=== PATIENT | female | born 1945 | race Caucasian/White ===

== ENCOUNTER 2018-05-04 18:11 | Observation (INO) | payer MEDICARE, BC ==
[~2018-05-04] VITALS: Ht 166.4 cm; Wt 90.9 kg
[~2018-05-04 18:11] MED LIST: ALBUTEROL SUL0.083 % IN; AMLODIPINE5 MG PO; ASTELIN NASA137 MCG; AZITHROMYCIN250 MG PO; BABY ASPIRIN81 MG PO; BAYER ASPIRIN E81 MG; CITRACAL + D OR; CITRACAL + D PO; CLARITIN10 M1 PO; CRESTOR10 MG PO; CVS ALLERGY REL10 MG PO; FLONASE NASAL50 MCG; FUROSEMIDE20 MG PO; GLIPIZIDE5 M1 PO; GLUCOTROL EXTE2.5 M1 PO; GLYBURIDE/METFO1 TA1 OR; HYZAAR1 TAB PO; KEFLEX500 M1 PO; LEVEMIR FLEXPEN SC; METFORMIN1000 MG PO; METFORMIN850 MG PO; MICRO-K10 ME1 OR; MULTIVITAM10 OR; NEXIUM40 M1 PO; ONE DAILY FOR WOME1 PO; PAROXETINE10 MG PO; PENTOXIFYLLI400 MG PO; PRILOSEC20 MG PO; SINGULAIR PO; TRAMADOL HCL50 MG PO; VITAMIN C500 M6 PO; WELCHOL625 MG PO
--- NOTE | 2018-05-04 18:27 | NUR ---
PT STATES THAT SHE HAD A SYNCOPAL EPISODE WHILE AT THE [facility]. STATES THAT THE PT WAS UNRESPONSIVE FOR 15 TO 20 SECONDS. PT STATES THAT SHE HAS A HX OF
--- NOTE | 2018-05-04 18:29 | NUR ---
PT STATES THAT HAD A SYNCOPAL EPISODE WHILE AT THE [facility], STATES THE PT WAS UNRESPONSIVE FOR 15 TO 20 SECONDS. PT FELL AND HIT THE BACK OF HER HEAD. PT STATES BACK PAIN AT A 3/10, HEAD PAIN AT A 8/10. PT STATES THAT SHE HAS A HX OF SYNCOPAL EPISODES. PT IS AOX4 AT THIS TIME. PT DENIES ANY CP, SOB, N/V OR WEAKNESS. PT IS C-BRISEYDA AND BACKBAORDED BY EMS.
--- NOTE | 2018-05-04 18:36 | NUR ---
PT STATES SHE IS NAUSEAUS VERBAL ORDER RECEIVED TO GIVEN 4MG ONDASETRON IVP PER DR SCHERER.
[2018-05-04] MEDS ORDERED: CLARITIN-D1 TA2 PO (18:44)
[2018-05-04] MEDS ORDERED: BIOTIN 5000 PO (18:44)
[2018-05-04] MEDS ORDERED: PROAIR HFA108 MCG/AC (18:45)
[2018-05-04] MEDS ORDERED: FLUTICASONE (18:46)
[2018-05-04] MEDS ORDERED: IRON 100 PLUS PO (18:46)
[2018-05-04] MEDS ORDERED: SYMBICORT 80-4.5MCG (18:47)
[2018-05-04] MEDS ORDERED: FUSION PLUS (18:48)
[2018-05-04] MEDS ORDERED: CALTRAT1 PO (18:49)
[2018-05-04 19:06] LABS: HEMOGLOBIN 12.1 g/dl (12.0-16.0); IMMATURE GRANULOCYTES 0.4 % (0.0-5.0); MEAN CELL VOLUME 82.5 fL CALC (80.0-100.0); MEAN CORPUSCULAR HGB 25.6 pG CALC (26.0-32.0); NEUT# 3.63 thou/uL (2.00-7.15); RED BLOOD COUNT 4.73 mill/uL (4.20-5.60)
--- NOTE | 2018-05-04 19:15 | NUR ---
REMOVED FROM BACKBOARD PER DR. BARRIGA.
[2018-05-04 19:20] LABS: ALBUMIN 3.6 g/dL (3.2-5.0); ANION GAP 13 (6-22 (CALC)); BILIRUBIN, TOTAL 0.4 mg/dL (0.0-1.4); BUN 13 mg/dL (8-23); BUN/CREATININE RATIO 24 (12-20 (CALC)); CARBON DIOXIDE 27 mmol/l (22-30); CHLORIDE 105 mmol/l (95-108); CREATININE 0.5 mg/dL (0.5-1.0); GFR > 60 ML/MIN (>=60 (CALC)); GFR FOR AFR.AMER. > 60 ML/MIN (>=60 (CALC)); SGOT/AST 26 u/l (9-36); SGPT/ALT 35 u/l (11-66); SODIUM 141 mmol/l (137-146); TOTAL PROTEIN 6.4 g/dL (6.3-8.2)
--- NOTE | 2018-05-04 19:24 | NUR ---
C/O MID BACK PAIN/SPASMS
[2018-05-04 19:33] LABS: MYOGLOBIN 21 ng/mL (0 - 62)
--- NOTE | 2018-05-04 19:35 | NUR ---
APPROXIMATELY 7 CM HEMATOMA TO OCCIPITAL REGION
[2018-05-04 19:55] LABS: ALKALINE PHOSPHATASE 214 u/l (38-126)
[2018-05-04 20:15] VITALS: BP 166/92
--- NOTE | 2018-05-04 20:18 | NUR ---
PT ARRIVED TO UNIT VIA STRETCHER WITH ER STAFF AND ; ALERT AND ORIENTED. PT AMBULATED TO BED WITH STAND BY ASSIST; SOFT COLLAR AROUND NECK. C/O THORACIC BACK PAIN 4/10 AND HEADACHE 2/10; HEMATOMA NOTED TO POSTERIOR HEAD. RESPIRATIONS EVEN AND UNLABORED ON ROOM AIR. PT VERY STIFF WITH MINIMAL MOVEMENT; POSITIONED IN HIGH FOWLERS AND STATES SHE MAY SLEEP LIKE THIS. ORIENTED TO ROOM AND CALL LIGHT SYSTEM. PLAN OF CARE DISCUSSED. PT ENCOURAGED TO VERBALIZE CONCERNS. STATES UNDERSTANDING. SAFETY MEASURES IN PLACE. CALL LIGHT WITHIN REACH.
--- NOTE | 2018-05-04 20:28 | NUR ---
EXTRICATION COLLAR REPLACED WITH SOFT COLLAR.
[2018-05-04 21:14] LABS: URINE BILIRUBIN - DIPSTICK NEGATIVE (NEGATIVE); URINE BLOOD DIPSTICK NEGATIVE (NEGATIVE); URINE COLOR YELLOW; URINE GLUCOSE - DIPSTICK NEGATIVE (NEGATIVE); URINE KETONE NEGATIVE (NEGATIVE); URINE LEUK ESTERASE NEGATIVE (NEGATIVE); URINE NITRITE - DIPSTICK NEGATIVE (Negative); URINE PH 6.5 (4.5-8.0); URINE PROTEIN - DIPSTICK NEGATIVE (NEG-TRACE); URINE SPECIFIC GRAVITY <=1.005; URINE UROBILINOGEN - DIPSTICK 0.2 E.U./dL (0.2)
[2018-05-04 21:21] LABS: URINE CLARITY CLEAR
--- NOTE | 2018-05-04 22:15 | NUR ---
Admission Note Report Given to: LUCIA PAEZ Transported by: Wheelchair X Stretcher Transported with: X Nurse Transporter X Patent IV O2 X Director Product
--- NOTE | 2018-05-05 00:16 | NUR ---
PT RESTING IN BED WITH EYES CLOSED; SEMI FOWLERS; AWAKENS SPONTANEOUSLY. HAD ENSURE AT HS. NEURO CHECKS WNL. IV SITE APPEARS HEALTHY AND FLUSHES. PT CONTINUES TO C/O MILD PAIN TO BACK AND HEAD; COOL PACK APPLIED TO HEAD AND REPOSITIONING ENCOURAGED. NO OTHER REQUESTS OR COMPLAINTS AT THIS TIME. CALL LIGHT WITHIN REACH.
[2018-05-05 04:15] VITALS: BP 131/77
--- NOTE | 2018-05-05 04:33 | NUR ---
PT AMBULATED TO BATHROOM WITH STAND BY ASSIST. MOVING SLOWLY AND HAS OCCASIONAL BACK SPASMS AND STIFFNESS R/T PAIN. NO OTHER COMPLAINTS. SAFETY MEASURES IN PLACE. CALL LIGHT WITHIN REACH.
[2018-05-05 08:00] VITALS: BP 138/77
--- NOTE | 2018-05-05 08:00 | NUR ---
PT RESTING IN BED, C/O MUSCLE SPASMS TO BACK AND NECK, PT IS IN A SOFT NECK BRACE, STATES SHE IS SORE ALL OVER HER BACK NECK AND R ARM FROM FALL. PT STATES SHE HIT THE FLOOR, SHE HAS A HEMATOMA TO THE BACK OF HER NECK. SHE ALSO STATES SHE HAS A HX OF "PASSING-OUT" SHE DOES NOT EVER GET THE SENSATION PRIOR TO PASSING-OUT. PT ALERT AND ORIENTED X3, PERRLA, ROTARY DRILLER HELPER STRONG AND EQUAL BILAT. FLEXARIL GIVEN FOR MUSCLE SPASMS. ASSESSMENT COMPLETED AT THIS TIME. CALL LIGHT IN REACH,CONTINUE TO MONITOR.
[2018-05-05 11:19] VITALS: BP 133/76
[2018-05-05] MEDS ORDERED: CYCLOBENZAPR5 MG PO (11:30)
[2018-05-05 12:08] LABS: ANION GAP 13 (6-22 (CALC)); BUN 15 mg/dL (8-23); BUN/CREATININE RATIO 25 (12-20 (CALC)); CARBON DIOXIDE 26 mmol/l (22-30); CHLORIDE 104 mmol/l (95-108); CREATININE 0.6 mg/dL (0.5-1.0); GFR > 60 ML/MIN (>=60 (CALC)); GFR FOR AFR.AMER. > 60 ML/MIN (>=60 (CALC)); POTASSIUM 4.3 mmol/l (3.5-5.1); SODIUM 139 mmol/l (137-146)
[2018-05-05 12:17] LABS: HEMATOCRIT 36.7 % (37.0-47.0); HEMOGLOBIN 11.3 g/dl (12.0-16.0); IMMATURE GRANULOCYTES 0.2 % (0.0-5.0); MEAN CORPUSCULAR HGB 25.6 pG CALC (26.0-32.0); MEAN CORPUSCULAR HGB CONC 30.8 g/L CALC (32.0-36.0); NEUT# 3.3 thou/uL (2.00-7.15); RED BLOOD COUNT 4.42 mill/uL (4.20-5.60); RED CELL DISTRI WIDTH 15.1 % (11.5-15.5)
--- NOTE | 2018-05-05 12:44 | NUR ---
DISCUSSED DISCHARGE, AT BEDSIDE, PRESCRIPTION PROVIDED. IV SITE REMOVED, TOLERATED WELL. CATHETER INTACT. DRESSING APPLIED.
--- NOTE | 2018-05-05 12:48 | NUR ---
Discharge instructions given. Patient verbalizes understanding of same. Discharged in stable condition via Wheelchair to Home with spouse. All belongings sent with pt.
== END 2018-05-05 12:55 | disposition home or self-care (01) ==
LOC: ED 18:11 → ED-I 21:00 → ED 21:47 → MS2 21:48
PROVIDERS: Emergency Medicine; ADMIT General Practice; ATTEND General Practice
DX: R55 Syncope and collapse (principal); E86.0 Dehydration; S00.03XA Contusion of scalp, initial encounter; E11.9 Type 2 diabetes mellitus without complications; I16.0 Hypertensive urgency; I10 Essential (primary) hypertension; M81.0 Age-related osteoporosis without current pathological fracture; I45.10 Unspecified right bundle-branch block; M19.90 Unspecified osteoarthritis, unspecified site; I73.00 Raynaud's syndrome without gangrene; M79.7 Fibromyalgia; W19.XXXA Unspecified fall, initial encounter; Z98.84 Bariatric surgery status

== ENCOUNTER 2019-07-08 12:33 | Emergency (ER) | payer MEDICARE, BC ==
[~2019-07-08] VITALS: Ht 166.4 cm; Wt 133.0 kg
[~2019-07-08 12:33] MED LIST changes: +BIOTIN 5000 PO; +CALTRAT1 PO; +CLARITIN-D1 TA2 PO; +CYCLOBENZAPR5 MG PO; +FLUTICASONE; +FUSION PLUS; +IRON 100 PLUS PO; +PROAIR HFA108 MCG/AC; +SYMBICORT 80-4.5MCG
[2019-07-08 14:17] LABS: URINE BILIRUBIN - DIPSTICK NEGATIVE (NEGATIVE); URINE BLOOD DIPSTICK SMALL (NEGATIVE); URINE COLOR YELLOW; URINE GLUCOSE - DIPSTICK 100 mg/dL (NEGATIVE); URINE KETONE NEGATIVE (NEGATIVE); URINE LEUK ESTERASE NEGATIVE (NEGATIVE); URINE NITRITE - DIPSTICK NEGATIVE (Negative); URINE PH 5.5 (4.5-8.0); URINE PROTEIN - DIPSTICK NEGATIVE (NEG-TRACE); URINE UROBILINOGEN - DIPSTICK 0.2 E.U./dL (0.2)
[2019-07-08 14:19] LABS: URINE EPITHELIAL CELLS FEW EPI/hpf (0-FEW); URINE RBC 0-2 RBC/hpf (0-5)
[2019-07-08 14:30] VITALS: BP 149/77
== END 2019-07-08 14:31 | disposition home or self-care (01) ==
LOC: ED 12:33
DX: S80.812A Abrasion, left lower leg, initial encounter (principal); E11.9 Type 2 diabetes mellitus without complications; I10 Essential (primary) hypertension; W45.8XXA Other foreign body or object entering through skin, initial encounter; Y93.E8 Activity, other personal hygiene; R30.0 Dysuria

== ENCOUNTER 2020-10-15 09:40 | Observation (INO) | payer MEDICARE, BC ==
[~2020-10-15] VITALS: Ht 167.6 cm; Wt 89.0 kg
[~2020-10-15 09:40] MED LIST changes: +FERREX 150150 MG PO; +NEXIUM20 M1 PO; +OTEZLA 10 & 201 TAB PO; -PRILOSEC20 MG PO; +TRESIBA100 UNIT/M SC; +TURMERIC500 MG PO; +[UNRECOGNIZED DRUG - OTHER] PO
[2020-10-15 10:20] LABS: HEMATOCRIT 42.7 % (37.0-47.0); HEMOGLOBIN 14.2 g/dl (12.0-16.0); IMMATURE GRANULOCYTES 0.3 % (0.0-5.0); MEAN CELL VOLUME 87.9 fL CALC (80.0-100.0); MEAN CORPUSCULAR HGB 29.2 pG CALC (26.0-32.0); MEAN CORPUSCULAR HGB CONC 33.3 g/dL CAL (32.0-36.0); NEUT# 4.06 thou/uL (2.00-7.15); RED BLOOD COUNT 4.86 mill/uL (4.20-5.60); RED CELL DISTRI WIDTH 12.4 % (11.5-15.5)
[2020-10-15 10:37] LABS: ALBUMIN 3.8 g/dL (3.2-5.0); ALKALINE PHOSPHATASE 153 u/l (38-126); ANION GAP 9 (6-22 (CALC)); BILIRUBIN, TOTAL 0.9 mg/dL (0.0-1.4); BUN 15 mg/dL (8-23); BUN/CREATININE RATIO 21 (12-20 (CALC)); CARBON DIOXIDE 28 mmol/l (22-30); CHLORIDE 101 mmol/l (95-108); CREATININE 0.7 mg/dL (0.5-1.0); ETHYL ALCOHOL 0 mg/dl (0-30); GFR > 60 ML/MIN (>=60 (CALC)); GFR FOR AFR.AMER. > 60 ML/MIN (>=60 (CALC)); LIPASE 196 u/l (23-300); MAGNESIUM 1.7 mg/dL (1.6-2.3); POTASSIUM 3.6 mmol/l (3.5-5.1); SGOT/AST 31 u/l (9-36); SODIUM 135 mmol/l (137-146); TOTAL PROTEIN 6.5 g/dL (6.3-8.2)
[2020-10-15 10:47] LABS: ACT PARTIAL THROMBO TIME 24.2 SECONDS (20.0-32.5); PROTHROMBIN TIME 10.2 SECONDS (9.0-12.5)
[2020-10-15] MEDS ORDERED: NORVASC5 M1 PO (14:02)
[2020-10-15] MEDS ORDERED: ATORVASTATIN CA80 MG PO (14:02)
[2020-10-15] MEDS ORDERED: ASPIRIN325 MG PO (14:03)
[2020-10-15] MEDS ORDERED: B121000 MCG (14:03)
[2020-10-15] MEDS ORDERED: CITRACAL + D3 MAXIMU PO (14:04)
[2020-10-15] MEDS ORDERED: CLARITIN-D1 TA2 PO (14:05)
[2020-10-15] MEDS ORDERED: ARNUITY EL50 MCG/ACT (14:07)
[2020-10-15] MEDS ORDERED: HYDROCHLOROT25 MG PO (14:09)
[2020-10-15] MEDS ORDERED: HYDROXYZ HCL25 MG PO (14:10)
[2020-10-15] MEDS ORDERED: NEXIUM20 M1 PO (14:12)
[2020-10-15] MEDS ORDERED: MELOXICAM7.5 MG PO (14:12)
[2020-10-15] MEDS ORDERED: OTEZLA 10 & 201 TAB (14:13)
[2020-10-15] MEDS ORDERED: PAROXETINE10 MG PO (14:14)
[2020-10-15] MEDS ORDERED: PENTOXIFYLLI400 M1 PO (14:15)
[2020-10-15] MEDS ORDERED: SYMBICORT 80-4.5MCG (14:15)
[2020-10-15] MEDS ORDERED: TRAZODONE50 MG PO (14:16)
[2020-10-15 15:58] VITALS: BP 148/67
[2020-10-15 16:24] LABS: URINE BILIRUBIN - DIPSTICK NEGATIVE (NEGATIVE); URINE BLOOD DIPSTICK LARGE (NEGATIVE); URINE COLOR YELLOW; URINE GLUCOSE - DIPSTICK >=1000 mg/dL (NEGATIVE); URINE KETONE NEGATIVE (NEGATIVE); URINE LEUK ESTERASE NEGATIVE (NEGATIVE); URINE NITRITE - DIPSTICK NEGATIVE (Negative); URINE PROTEIN - DIPSTICK 30 mg/dL (NEG-TRACE); URINE SPECIFIC GRAVITY 1.025; URINE UROBILINOGEN - DIPSTICK 0.2 E.U./dL (0.2)
[2020-10-15 16:33] LABS: URINE RBC 50-100 RBC/hpf (0-5); URINE SQUAMOUS EPITHELIAL CELL FEW EPI/hpf (0-FEW)
[2020-10-15 18:53] VITALS: BP 122/76
[2020-10-16 00:22] VITALS: BP 124/79
[2020-10-16 04:45] VITALS: BP 120/68
[2020-10-16 07:11] LABS: HEMATOCRIT 38.3 % (37.0-47.0); HEMOGLOBIN 12.5 g/dl (12.0-16.0); IMMATURE GRANULOCYTES 0.1 % (0.0-5.0); MEAN CELL VOLUME 88.9 fL CALC (80.0-100.0); MEAN CORPUSCULAR HGB CONC 32.6 g/dL CAL (32.0-36.0); NEUT# 3.58 thou/uL (2.00-7.15); RED BLOOD COUNT 4.31 mill/uL (4.20-5.60); RED CELL DISTRI WIDTH 12.6 % (11.5-15.5)
[2020-10-16 07:51] LABS: ALKALINE PHOSPHATASE 121 u/l (38-126); ANION GAP 8 (6-22 (CALC)); BILIRUBIN, TOTAL 0.6 mg/dL (0.0-1.4); BUN 14 mg/dL (8-23); BUN/CREATININE RATIO 20 (12-20 (CALC)); CALCULATED LDLCHOLESTEROL 81 mg/dL (62-129 (CALC)); CARBON DIOXIDE 27 mmol/l (22-30); CHLORIDE 105 mmol/l (95-108); CREATININE 0.7 mg/dL (0.5-1.0); GFR > 60 ML/MIN (>=60 (CALC)); GFR FOR AFR.AMER. > 60 ML/MIN (>=60 (CALC)); HDL CHOLESTEROL 41 mg/dL (>=40); MAGNESIUM 1.8 mg/dL (1.6-2.3); POTASSIUM 3.2 mmol/l (3.5-5.1); SGOT/AST 19 u/l (9-36); SODIUM 136 mmol/l (137-146); TOTAL CHOLESTEROL 163 mg/dl (0-199); TOTAL PROTEIN 5.4 g/dL (6.3-8.2); TOTAL TRIGLYCERIDES 208 mg/dl (30-149); VLDL CHOLESTROL 42 mg/dl (0-48 (CALC))
[2020-10-16 07:53] VITALS: BP 134/68
[2020-10-16 10:55] VITALS: BP 138/69
[2020-10-16] MEDS ORDERED: ENTERIC COATED325 MG PO (11:32)
== END 2020-10-16 12:01 | disposition home or self-care (01) ==
LOC: ED 09:40 → ED-I 12:48 → ED 13:04 → MS2 13:05
PROVIDERS: Nurse Practitioner; ADMIT Internal Medicine; ATTEND Internal Medicine
DX: G45.9 Transient cerebral ischemic attack, unspecified (principal); I10 Essential (primary) hypertension; E11.9 Type 2 diabetes mellitus without complications; J44.9 Chronic obstructive pulmonary disease, unspecified; I25.10 Atherosclerotic heart disease of native coronary artery without angina pectoris; E78.5 Hyperlipidemia, unspecified; K21.9 Gastro-esophageal reflux disease without esophagitis; I73.00 Raynaud's syndrome without gangrene; F41.9 Anxiety disorder, unspecified; F32.9 Major depressive disorder, single episode, unspecified; Z98.84 Bariatric surgery status; Z85.44 Personal history of malignant neoplasm of other female genital organs; Z79.4 Long term (current) use of insulin; Z86.73 Personal history of transient ischemic attack (TIA), and cerebral infarction without residual deficits; Z79.02 Long term (current) use of antithrombotics/antiplatelets; Z79.82 Long term (current) use of aspirin; Z20.822 Contact with and (suspected) exposure to COVID-19
CPT/HCPCS: J1650

== ENCOUNTER 2021-05-18 08:04 | Day surgery (SDC) | payer MEDICARE, BC ==
[~2021-05-18] VITALS: Ht 167.6 cm; Wt 83.0 kg
[~2021-05-18 08:04] MED LIST changes: +ARNUITY EL50 MCG/ACT; +ASPIRIN325 MG PO; +ATORVASTATIN CA80 MG PO; +AZELASTINE HYDR1 SPR; +B121000 MCG; +CITRACAL + D3 MAXIMU PO; +ENTERIC COATED325 MG PO; +FLONASE AL50 MCG/ACT IH; +GABAPENTIN100 MG PO; +HYDROCHLOROT25 MG PO; +HYDROXYZ HCL25 MG PO; +KAPSPARGO SPRIN25 MG PO; +KLOR-CON M2020 MEQ PO; +MELOXICAM7.5 MG PO; +NORVASC5 M1 PO; +OTEZLA 10 & 201 TAB; +PENTOXIFYLLI400 M1 PO; +PLAVIX75 MG PO; +PROAIR HFA IN; +RECLAST5 MG/100 M IV; +SINGULAIR10 MG PO; +SLOW-MAG PO; +TRAZODONE50 MG PO; +TRESIBA FL100 UNIT/M; +XARELTO10 MG PO
[2021-05-18] MEDS ORDERED: [UNRECOGNIZED DRUG - REMARK] PO (08:40)
[2021-05-18 10:16] VITALS: BP 125/59
== END 2021-05-18 10:20 | disposition home or self-care (01) ==
LOC: ENDO 08:04
PROVIDERS: ATTEND Surgery
PROC: 0DJD8ZZ Inspection of Lower Intestinal Tract, Via Natural or Artificial Opening Endoscopic (ICD-10-PCS; principal; 2021-05-18)
DX: Z12.11 Encounter for screening for malignant neoplasm of colon (principal); K57.30 Diverticulosis of large intestine without perforation or abscess without bleeding; K64.8 Other hemorrhoids; E11.9 Type 2 diabetes mellitus without complications; I10 Essential (primary) hypertension; J45.909 Unspecified asthma, uncomplicated; K21.9 Gastro-esophageal reflux disease without esophagitis; Z98.84 Bariatric surgery status; Z86.73 Personal history of transient ischemic attack (TIA), and cerebral infarction without residual deficits; Z79.01 Long term (current) use of anticoagulants; Z79.4 Long term (current) use of insulin

== ENCOUNTER 2021-09-24 02:26 | Emergency (ER) | payer MEDICARE, BC ==
[~2021-09-24] VITALS: Ht 165.1 cm; Wt 78.0 kg
[~2021-09-24 02:26] MED LIST changes: +[UNRECOGNIZED DRUG - REMARK] PO
[2021-09-24 03:07] LABS: HEMATOCRIT 38.5 % (37.0-47.0); HEMOGLOBIN 12.4 g/dl (12.0-16.0); IMMATURE GRANULOCYTES 0.6 % (0.0-5.0); MEAN CELL VOLUME 90.6 fL CALC (80.0-100.0); MEAN CORPUSCULAR HGB 29.2 pG CALC (26.0-32.0); MEAN CORPUSCULAR HGB CONC 32.2 g/dL CAL (32.0-36.0); NEUT# 5.51 thou/uL (2.00-7.15); RED BLOOD COUNT 4.25 mill/uL (4.20-5.60); RED CELL DISTRI WIDTH 13.1 % (11.5-15.5)
[2021-09-24] MEDS ORDERED: XYZAL ALLERGY 245 MG PO (03:08)
[2021-09-24] MEDS ORDERED: TRULICITY0.75 MG/0. (03:10)
[2021-09-24 03:16] LABS: ALBUMIN 3.4 g/dL (3.2-5.0); ALKALINE PHOSPHATASE 146 u/l (38-126); AMYLASE 56 u/l (30-110); ANION GAP 7 (6-22 (CALC)); BILIRUBIN, TOTAL 0.5 mg/dL (0.0-1.4); BUN 16 mg/dL (8-23); BUN/CREATININE RATIO 16 (12-20 (CALC)); CARBON DIOXIDE 29 mmol/l (22-30); CHLORIDE 105 mmol/l (95-108); GFR 54 ML/MIN (>=60 (CALC)); GFR FOR AFR.AMER. > 60 ML/MIN (>=60 (CALC)); LIPASE 93 u/l (23-300); POTASSIUM 3.4 mmol/l (3.5-5.1); SODIUM 138 mmol/l (137-146); TOTAL PROTEIN 6.4 g/dL (6.3-8.2)
[2021-09-24] MEDS ORDERED: LOSARTAN POTASS25 MG PO (03:17)
[2021-09-24 03:18] LABS: SGOT/AST 101 u/l (9-36)
[2021-09-24 03:27] LABS: MYOGLOBIN 39 ng/mL (0 - 62)
[2021-09-24] MEDS ORDERED: PROTONIX40 MG PO (07:23)
[2021-09-24 07:47] VITALS: BP 103/54
== END 2021-09-24 08:05 | disposition home or self-care (01) ==
LOC: ED 02:26
PROVIDERS: Family Medicine
DX: R10.13 Epigastric pain (principal); I10 Essential (primary) hypertension; E11.9 Type 2 diabetes mellitus without complications; J45.909 Unspecified asthma, uncomplicated; K21.9 Gastro-esophageal reflux disease without esophagitis; Z98.84 Bariatric surgery status; Z79.4 Long term (current) use of insulin; Z86.73 Personal history of transient ischemic attack (TIA), and cerebral infarction without residual deficits; R94.31 Abnormal electrocardiogram [ECG] [EKG]
CPT/HCPCS: S0164

== ENCOUNTER 2024-03-31 00:44 | Emergency (ER) | payer MEDICARE, BC ==
[~2024-03-31] VITALS: Ht 165.1 cm; Wt 63.5 kg
[~2024-03-31 00:44] MED LIST changes: +CLARITIN10 M2 PO; +FLEXERIL5 M1 PO; -FLONASE AL50 MCG/ACT IH; +FLONASE AL50 MCG/ACT NAB; +FOLIC ACID1 M1 PO; +HYZAAR1 TA1 PO; -KAPSPARGO SPRIN25 MG PO; +METHOTREXATE S2.5 MG PO; +ORPHENADRINE C100 M1 PO; -OTEZLA 10 & 201 TAB; +PROTONIX40 MG PO; +SYMBICORT 80-4.5MCG IN; +TOPROL XL25 M1 PO; -TRESIBA FL100 UNIT/M; +TRESIBA FL200 UNIT/M SC; +TRULICITY0.75 MG/0. SC; +TURMERIC500 M1 PO; +VITAMIN D1000 UNI2 PO; +XYZAL ALLERGY 245 MG PO
[2024-03-31] MEDS ORDERED: Acetaminophen 300 MG/Codeine 30 MG/COMBO PO ONE (01:25)
[2024-03-31] MEDS ORDERED: KETOROLAC TROMETHAMINE 30 MG/ML SDV IM ONE (01:25)
[2024-03-31] MEDS ORDERED: TYLENOL # 31 TA1 PO (05:06)
[2024-03-31] MEDS ORDERED: VOLTAREN - GENE75 MG PO (05:06)
[2024-03-31 05:32] VITALS: BP 135/78
== END 2024-03-31 05:32 | disposition home or self-care (01) ==
LOC: ED 00:44
DX: S00.03XA Contusion of scalp, initial encounter (principal); S20.412A Abrasion of left back wall of thorax, initial encounter; S10.93XA Contusion of unspecified part of neck, initial encounter; S40.021A Contusion of right upper arm, initial encounter; S50.01XA Contusion of right elbow, initial encounter; S70.02XA Contusion of left hip, initial encounter; S70.01XA Contusion of right hip, initial encounter; M47.812 Spondylosis without myelopathy or radiculopathy, cervical region; M47.814 Spondylosis without myelopathy or radiculopathy, thoracic region; M47.816 Spondylosis without myelopathy or radiculopathy, lumbar region; I48.91 Unspecified atrial fibrillation; I10 Essential (primary) hypertension; E11.9 Type 2 diabetes mellitus without complications; W10.0XXA Fall (on)(from) escalator, initial encounter; Y92.520 Airport as the place of occurrence of the external cause; Z79.4 Long term (current) use of insulin; Z95.818 Presence of other cardiac implants and grafts; Z86.73 Personal history of transient ischemic attack (TIA), and cerebral infarction without residual deficits

== ENCOUNTER 2024-04-12 11:23 | Emergency (ER) | payer MEDICARE, BC ==
[~2024-04-12] VITALS: Ht 165.1 cm; Wt 60.0 kg
[2024-04-12] VITALS (7 sets, daily range): BP systolic 140–176; BP diastolic 71–132
[~2024-04-12 11:23] MED LIST changes: +TYLENOL # 31 TA1 PO; +VOLTAREN - GENE75 MG PO
[2024-04-12] MEDS ORDERED: ATORVASTATIN CA40 MG PO (12:19)
[2024-04-12] MEDS ORDERED: MEDDOSEPAK PO (12:50)
[2024-04-12] MEDS ORDERED: LORTAB 5/3255 MG PO (12:50)
== END 2024-04-12 13:09 | disposition home or self-care (01) ==
LOC: ED 11:23
DX: S46.911A Strain of unspecified muscle, fascia and tendon at shoulder and upper arm level, right arm, initial encounter (principal); I10 Essential (primary) hypertension; E11.9 Type 2 diabetes mellitus without complications; J45.909 Unspecified asthma, uncomplicated; K21.9 Gastro-esophageal reflux disease without esophagitis; I48.91 Unspecified atrial fibrillation; W10.0XXA Fall (on)(from) escalator, initial encounter; Z86.73 Personal history of transient ischemic attack (TIA), and cerebral infarction without residual deficits